=== PATIENT | male | born 1960 | race Caucasian/White ===

== ENCOUNTER 2017-04-21 14:06 | Emergency (ER) | payer OTHER ==
[~2017-04-21] VITALS: Ht 170.2 cm; Wt 72.6 kg
[~2017-04-21 14:06] MED LIST: INDOMETHACIN50 M1 PO; ROBITUSSIN W/CO10 ML PO; ZITHROMAX Z PA250 MG PO
--- NOTE | 2017-04-21 16:17 | ED GENERAL ADULT ---
History of Present Illness General Chief Complaint: Upper Respiratory Sx/Fever Stated Complaint: URI SINCE TUESDAY Source: patient Exam Limitations: no limitations Vital Signs & Intake/Output Vital Signs & Intake/Output Vital Signs Date Time Temp Pulse Resp B/P B/P Pulse O2 O2 Flow FiO2 Mean Ox Delivery Rate 04/21 1802 98.0 70 140/78 99 04/21 1551 Room Air 04/21 1412 97.5 69 18 137/87 99 Room Air Allergies Coded Allergies: MDX - SULFA (sulfonamide) (SULFA (SULFONAMIDE)) (Severe, HIVES 03/21/15) Reconcile Medications Azithromycin (Zithromax Z Pack) 250 MG TAB 1 TAB PO DAILY BRONCHITIS TAKE 2 TABS ON DAY 1 AND THEN 1 TAB DAILY FOR 4 MORE DAYS Indomethacin 50 MG CAPSULE 1 CAP PO TID PRN pain with food Robitussin AC (Guaifenesin-Codeine Syrup) 10 ML UDC 10 ML PO Q6P PRN COUGH Triage Note: PT TO ED FOR FATIGUE, SUBJECTIVE FEVER AND GENERAL COLD S/S FOR PAST SEVERAL DAYS. Triage Nurses Notes Reviewed? yes Onset: Abrupt Duration: minute(s): Timing: recent history HPI: 04/21/17 56-year-old male presents to the emergency department for cough and fever for several days. The onset of the symptoms were abrupt, the duration has been 3 days, severity significant; as his symptoms required him to come to the emergency department for care. He does not smoke. He denies any significant past medical history. Past History Travel History Traveled to [place] past 21 day No Medical History Any Pertinent Medical History? see below for history Neurological: NONE EENT: NONE Cardiovascular: NONE Respiratory: NONE Gastrointestinal: NONE Hepatic: NONE Renal: NONE Musculoskeletal: NONE Psychiatric: NONE Endocrine: NONE Blood Disorders: NONE Cancer(s): NONE MEDICAL COLLECTIONS SPECIALIST/Reproductive: NONE Surgical History Surgical History: non-contributory Psychosocial History What is your primary language Panamanian Tobacco Use: Never used ETOH Use: denies use Illicit Drug Use: denies illicit drug use Family History Hx Contributory? No Review of Systems Review of Systems Constitutional: Reports: fever. EENTM: Reports: nasal congestion. Denies: throat pain. Respiratory: Reports: cough. Denies: short of breath. Cardiovascular: Denies: chest pain. GI: Denies: abdominal pain. Genitourinary: Reports: no symptoms. Musculoskeletal: Reports: no symptoms. Skin: Reports: no symptoms. Neurological/Psychological: Reports: no symptoms. Hematologic/Endocrine: Reports: no symptoms. Immunologic/Allergic: Reports: no symptoms. Physical Exam Physical Exam General Appearance: well developed/nourished, alert, awake, anxious, mild distress Head: atraumatic, normal appearance Eyes: Bilateral: normal appearance, PERRL, EOMI. Ears, Nose, Throat: normal pharynx, normal ENT inspection Neck: normal inspection, supple, full range of motion Respiratory: normal breath sounds, chest non-tender, no respiratory distress Cardiovascular: regular rate/rhythm Peripheral Pulses: 4+ radial (R), 4+ radial (L) Gastrointestinal: soft, non-tender Back: normal range of motion Extremities: normal inspection, normal range of motion Neurologic/Psych: no motor/sensory deficits, awake, alert, oriented x 3 Skin: intact, normal color, warm/dry Core Measures ACS in differential dx? No CVA/TIA Diagnosis: No Sepsis Present: No Sepsis Focused Exam Completed? No Progress Differential Diagnoses I considered the following diagnoses in my evaluation of the patient: [URI, pneumonia, bronchitis, asthma] Plan of Care: Orders Procedure Date/time Status RAPID VIRAL INFLUENZA A 04/21 1615 Complete Microbiology 04/21 1626 NASOPHARYN: Influenza Virus A & B Rapid Smear - COMP Initial ED EKG: none Departure Departure Disposition: HOME OR SELF CARE Condition: Stable Clinical Impression Primary Impression: URI (upper respiratory infection) Referrals: Tank DOMINGUEZ,Juve Shanks (PCP/Family) Departure Forms: Customer Survey General Discharge Information Comments Chest x-ray is negative Quick flu was negative He will be treated symptomatically with Tylenol as needed Follow-up with his doctor if not better in 7 days. Critical Care Note Critical Care Note Critical Care Time: non-applicable
--- NOTE | 2017-04-21 16:40 | RADIOLOGY REPORT ---
EXAMINATION: XR PORTABLE CHEST CLINICAL INFORMATION: Cough, fever COMPARISON: Chest x-ray 03/21/2015 TECHNIQUE: Portable frontal view of the chest was obtained. FINDINGS: No significant abnormality is noted involving the heart, lungs, mediastinum, bony thorax or soft tissues. IMPRESSION: Unremarkable examination.
[2017-04-21 18:02] VITALS: BP 140/78
== END 2017-04-21 18:03 ==
LOC: ERH 14:06
DX: J06.9 Acute upper respiratory infection, unspecified (principal)
CPT/HCPCS: 71045; 87804; 87804-59